=== PATIENT | male | born 1995 | race African-American/Black ===

== ENCOUNTER 2020-10-25 19:18 | Emergency (ER) | payer OTHER ==
[2020-10-25 19:29] VITALS: BP 142/95; PULSE 84; TEMP 99.6; BMI 38.1
[2020-10-25] MEDS ORDERED: HIV POST EXPOSURE PROPHYLAXIS KIT PO ONE (19:58)
[2020-10-25 20:38] LABS: BASO % 4.9 % (0-2.0); EOS % 1.7 % (0-4.5); HEMATOCRIT 47.2 % (35.4-49); LYMPH % 38.6 % (8-40); MCH 25.8 pg (25.7-33.7); MCHC 31.7 g/dl (32.0-35.9); MEAN CELL VOLUME 81.4 fl (80-96); MEAN PLT VOLUME 8.9 fl (7.5-11.1); MONO % 5.4 % (3.8-10.2); NEUT % 49.4 % (42.8-82.8); PLATELET COUNT 243 K/MM3 (134-434); RDW 15.3 % (11.9-15.9); WHITE BLOOD COUNT 9.1 K/mm3 (4.0-10.8)
[2020-10-25 20:51] LABS: ALBUMIN 4.1 g/dl (3.4-5.0); BILIRUBIN,TOTAL 0.5 mg/dl (0.2-1); CALCIUM 9.3 mg/dl (8.5-10); CREATININE 1.5 mg/dl (0.55-1.3); PHOSPHOROUS 3.5 mg/dl (2.5-4.9); POTASSIUM 3.7 mmol/L (3.5-5.1); TOT PROT 7.6 g/dl (6.4-8.2); URIC ACID 7.2 mg/dl (2.6-7.2)
[2020-10-25 23:14] LABS: HIV INTERPRETATION NEGATIVE (NEGATIVE)
[2020-10-25] MEDS ORDERED: HIV POST EXPOSURE PROPHYLAXIS KIT NR ONE (23:32)
[2020-10-26] MEDS ORDERED: EMTRICITABINE 200MG/TENOFOVIR 300MG PO SCH (10:00)
== END 2020-10-25 23:46 | disposition home or self-care (01) ==
LOC: FER 19:18
DX: S61.431A Puncture wound without foreign body of right hand, initial encounter (principal); W46.1XXA Contact with contaminated hypodermic needle, initial encounter; Z77.21 Contact with and (suspected) exposure to potentially hazardous body fluids
CPT/HCPCS: 36415; 80053; 82465; 82977; 83615; 84100; 84478; 84550; 85025; 86317; 86704; 86706; 86803; 87340; 87389; 99283-25

== ENCOUNTER 2021-05-20 09:30 | Emergency (ER) | payer OTHER ==
[2021-05-20 09:36] VITALS: BP 162/94; PULSE 89; TEMP 98.8; BMI 40.4
[2021-05-20] MEDS ORDERED: DIPHTH,PERTUSS(ACELL),TET 0.5 ML DISP.SYRIN IM ONE ×2 (09:41→09:43)
== END 2021-05-20 10:20 | disposition home or self-care (01) ==
LOC: FER 09:30
PROC: 0HQ3XZZ Repair Left Ear Skin, External Approach (ICD-10-PCS; principal; 2021-05-20)
PROC: 3E0234Z Introduction of Serum, Toxoid and Vaccine into Muscle, Percutaneous Approach (ICD-10-PCS; principal; 2021-05-20)
DX: S01.312A Laceration without foreign body of left ear, initial encounter (principal); W25.XXXA Contact with sharp glass, initial encounter
CPT/HCPCS: 90715; 99282-25

== ENCOUNTER 2022-02-27 22:40 | Emergency (ER) | payer OTHER ==
[2022-02-27 22:54] VITALS: BP 158/92; PULSE 105; TEMP 99.3; BMI 40.5
== END 2022-02-28 00:12 | disposition home or self-care (01) ==
LOC: FER 22:40
DX: J70.5 Respiratory conditions due to smoke inhalation (principal)
CPT/HCPCS: 99282-25